=== PATIENT | female | born 1985 | race Caucasian/White ===

== ENCOUNTER 2016-12-11 13:04 | Emergency (ER) | payer SELFPAY ==
[2016-12-11] MEDS ORDERED: traMADol HCl 50 MG TAB ONE (13:27)
[2016-12-11] MEDS ORDERED: Ondansetron ODT 4 MG TAB ONE (13:27)
== END 2016-12-11 13:37 | disposition home or self-care (01) ==
LOC: MADERS 13:04
DX: R51 Headache (principal); F41.9 Anxiety disorder, unspecified; F32.9 Major depressive disorder, single episode, unspecified; Z79.899 Other long term (current) drug therapy
CPT/HCPCS: 99283; Q0162

== ENCOUNTER 2017-01-31 16:52 | Outpatient (CLI) | payer BC ==
--- NOTE | 2017-01-31 17:29 | RAD ---
THREE VIEWS OF THE RIGHT SHOULDER 01/31/17 COMPARISON: None. HISTORY: Right shoulder pain for one week. FINDINGS: The width of the right acromioclavicular joint is upper limits of normal. The coracoclavicular inter space is normal. No fracture or evidence for glenohumeral joint dislocation. IMPRESSION: The width of the AC joint is at the upper limits of normal. If the patient had recent trauma, or the patient is point tender at the region of the right AC joint, a right AC joint injury cannot be excl uded. Clinical correlation is required. POS: ISSA
== END 2017-01-31 16:53 | disposition home or self-care (01) ==
LOC: MADRAD 16:52
PROVIDERS: ATTEND Family Medicine
DX: M25.511 Pain in right shoulder (principal)

== ENCOUNTER 2019-07-09 14:50 | Emergency (ER) | payer BC ==
[2019-07-09] MEDS ORDERED: Ondansetron ODT 4 MG TAB ONE (15:19)
[2019-07-09] MEDS ORDERED: Ibuprofen 800 MG TAB ONE (15:19)
== END 2019-07-09 15:29 | disposition home or self-care (01) ==
LOC: MADERS 14:50
DX: S30.0XXA Contusion of lower back and pelvis, initial encounter (principal); S70.01XA Contusion of right hip, initial encounter; F41.9 Anxiety disorder, unspecified; F32.9 Major depressive disorder, single episode, unspecified; W01.10XA Fall on same level from slipping, tripping and stumbling with subsequent striking against unspecified object, initial encounter
CPT/HCPCS: 99283; Q0162

== ENCOUNTER 2023-04-11 05:31 | Emergency (ER) | payer BC, SELFPAY ==
[2023-04-11 05:58] LABS: Bilirubin Small (Negative); Blood, Urine Negative (Negative); Glucose, Urine (Dipstick) Negative (Negative); Ketone, Urine Negative (Negative); Leukocyte Negative (Negative); Nitrite Negative (Negative); Protein, Urine (Dipstick) 30 mg/dL (Neg-Trace); Urobilinogen 0.2 mg/dL (Less than 2); pH, Urine 5.5 (5.0-9.0)
[2023-04-11 06:06] LABS: Specific Gravity, Urine 1.031 (1.002-1.036)
[2023-04-11 06:07] LABS: Bacteria/HPF 1+ HPF (None Seen); CAUTI Indications for Culture Pelvic or flank pain; Clarity Slightly Cloudy (Clear); RBC/HPF 0-3 HPF (0-3); WBC/HPF 0-3 HPF (0-3)
[2023-04-11 06:08] LABS: Pregnancy Test - Urine (BHCG) Negative (Negative); Pregu Control Background? CLEAR/WHITE (CLR/WHITE); Pregu Control Bar Appear? YES (CONTROL BAR); Specific Gravity 1.031 (1.002-1.036); Urine Culture Reflex No No
[2023-04-11] MEDS ORDERED: Morphine 4 MG/ML VIAL ONE ×2 (06:14→08:08)
[2023-04-11] MEDS ORDERED: Lactated Ringer's 1,000 ML ONE (06:14)
[2023-04-11] MEDS ORDERED: Ketorolac Tromethamine 30 MG/ML VIAL ONE (06:14)
[2023-04-11 06:41] LABS: INR-International Normal Ratio 0.9; PTT 34.1 sec (22.9-36.1); Prothrombin Time 12.4 sec (12.0-14.7)
[2023-04-11 06:44] LABS: ALT (SGPT) 8 U/L (8-55); AST (SGOT) 15 U/L (5-34); Albumin 4.5 g/dL (3.5-5.0); Alkaline Phosphatase 101 U/L (40-110); Anion Gap 17 mmol/L (10-20); BUN (Urea Nitrogen) 14 mg/dL (7.0-18.7); Bilirubin, Total 0.5 mg/dL (0.2-1.2); Calc. Creatinine Clearance 0 mL/min (70-130); Calcium 9.9 mg/dL (7.8-10.44); Carbon Dioxide 24 mmol/L (22-29); Chloride 99 mmol/L (98-107); Estimated GFR 63; Globulin 3.9 g/dL (2.4-3.5); Glucose 113 mg/dL (70-105); Hematocrit 37.6 % (36.0-47.0); Hemoglobin 11.4 g/dL (12.0-16.0); Mean Corpuscular HGB CONC 30.4 g/dL (32.0-36.0); Mean Corpuscular Hemoglobin 23.5 pg (27.0-31.0); Mean Corpuscular Volume 77.3 fl (78.0-98.0); Mean Platelet Volume 8.5 fL (7.4-10.4); Platelet Count 461 10x3/uL (130-400); Potassium 3.3 mmol/L (3.5-5.1); Protein, Total 8.4 g/dL (6.0-8.3); RBC Distribution Width 15.2 % (11.5-14.5); Red Blood Cell (RBC) Count 4.87 mill/uL (4.20-5.40); Sodium 137 mmol/L (136-145); White Blood Cell (WBC) Count 5.9 10x3/uL (4.8-10.8)
[2023-04-11 06:50] LABS: Anisocytosis SLIGHT = 6-15 cells (100X) (0-5/hpf); Band 4 % (5-11); Lymphocytes 16 % (21-51); MDiff Complete? YES; Manual Diff?? YES; Monocytes 10 % (0-10); Neutrophil 70 % (42-75)
[2023-04-11] MEDS ORDERED: Potassium Chloride 20 MEQ TAB ONE (06:50)
[2023-04-11 06:51] LABS: Platelet Adequacy Comment Appears Adequate
[2023-04-11 07:09] LABS: Magnesium 1.9 mg/dL (1.6-2.6)
[2023-04-11] MEDS ORDERED: Iopamidol 370 76% 100 ML VIAL ONE (07:27)
[2023-04-11] MEDS ORDERED: Dicyclomine 20 MG/2 ML VIAL ONE (08:14)
[2023-04-11] MEDS ORDERED: Sodium Chloride 0.9% 100 ML ONE (08:36)
[2023-04-11] MEDS ORDERED: Piperacillin/Tazobactam 4.5 GM VIAL ONE (08:36)
== END 2023-04-11 09:11 | disposition short-term general hospital (02) ==
LOC: MADERS 05:31
DX: I88.0 Nonspecific mesenteric lymphadenitis (principal); I10 Essential (primary) hypertension
CPT/HCPCS: 74177; 80053; 81001; 81025; 83605; 83690; 83735; 85025; 85610; 85730; 87040; 96361; 96365; 96372; 96375; 96376; J1885; J2270; J2543; J3490; J7120; Q9967

== ENCOUNTER 2023-12-10 09:06 | Emergency (ER) | payer BC | END 2023-12-10 10:00 | disposition home or self-care (01) | LOC: MADERS 09:06 | DX: K04.7 Periapical abscess without sinus (principal); K08.89 Other specified disorders of teeth and supporting structures; I10 Essential (primary) hypertension | CPT/HCPCS: 99282 ==

== ENCOUNTER 2023-12-10 20:34 | Emergency (ER) | payer BC ==
[2023-12-10] MEDS ORDERED: Ondansetron ODT 4 MG TAB ONE (21:15)
[2023-12-10] MEDS ORDERED: traMADol HCl 50 MG TAB ONE (21:16)
== END 2023-12-10 21:26 | disposition home or self-care (01) ==
LOC: MADERS 20:34
DX: K04.7 Periapical abscess without sinus (principal); I10 Essential (primary) hypertension; Z79.899 Other long term (current) drug therapy; K08.89 Other specified disorders of teeth and supporting structures
CPT/HCPCS: 99282; Q0162

== ENCOUNTER 2024-07-07 03:08 | Emergency (ER) | payer BC ==
[2024-07-07 03:44] LABS: #Basophils 0.1 thou/uL (0.0-0.2); #Eosinophils 0.2 thou/uL (0.0-0.7); #Lymphocytes 2.5 thou/uL (1.20-3.40); #Monocytes 0.5 thou/uL (0.11-0.59); #Neutrophils 4.7 thou/uL (1.40-6.50); %Basophils 0.8 % (0.0-1.0); %Eosinophils 2.2 % (0.0-10.0); %Lymphocytes 31.4 % (21.0-51.0); %Monocytes 6.3 % (0.0-10.0); %Neutrophils 59.4 % (42.0-75.0); Anisocytosis SLIGHT = 6-15 cells (100X) (0-5/hpf); Elliptocytes SLIGHT = 2-5 cells (100X) (0-1/hpf); Hematocrit 26.4 % (36.0-47.0); Hemoglobin 7.6 g/dL (12.0-16.0); Hypochromia SLIGHT = 6-15 cells (100X) (0-5/hpf); MDiff Complete? YES; Mean Corpuscular Volume 62.2 fl (78.0-98.0); Mean Platelet Volume 6.8 fL (7.4-10.4); Microcytosis SLIGHT = 6-15 cells (100X) (0-5/hpf); Ovalocytes SLIGHT = 2-5 cells (100X) (0-1/hpf); Platelet Adequacy Comment Appears Increased; Platelet Count 471 10x3/uL (130-400); Polychromasia SLIGHT = 2-3 cells (100X) (0-2/hpf); RBC Distribution Width 15.9 % (11.5-14.5); Red Blood Cell (RBC) Count 4.24 mill/uL (4.20-5.40); Reflex for Review?? YES; Stomatocytes SLIGHT = 2-5 cells (100X) (0-1/hpf); White Blood Cell (WBC) Count 7.9 10x3/uL (4.8-10.8)
[2024-07-07 03:52] LABS: ALT (SGPT) 10 U/L (8-55); AST (SGOT) 18 U/L (5-34); Albumin 3.8 g/dL (3.5-5.0); Alkaline Phosphatase 91 U/L (40-110); Anion Gap 17 mmol/L (10-20); BUN (Urea Nitrogen) 6 mg/dL (7.0-18.7); Bilirubin, Total 0.3 mg/dL (0.2-1.2); Calc. Creatinine Clearance 0 mL/min (70-130); Carbon Dioxide 23 mmol/L (22-29); Chloride 103 mmol/L (98-107); Estimated GFR 82; Glucose 114 mg/dL (70-105); Potassium 3.4 mmol/L (3.5-5.1); Protein, Total 7.8 g/dL (6.0-8.3); Sodium 140 mmol/L (136-145)
[2024-07-07 03:53] LABS: Troponin I Less than 0.010 ng/mL (< 0.028)
[2024-07-07] MEDS ORDERED: Ketorolac Tromethamine 30 MG (1 mL) VIAL ONE (04:01)
[2024-07-07] MEDS ORDERED: Metoclopramide HCl 10 MG (2 mL) VIAL ONE (04:01)
== END 2024-07-07 05:00 | disposition home or self-care (01) ==
LOC: MADERS 03:08
DX: I47.10 Supraventricular tachycardia, unspecified (principal); I10 Essential (primary) hypertension; K21.9 Gastro-esophageal reflux disease without esophagitis; Z79.899 Other long term (current) drug therapy
CPT/HCPCS: 71045; 80053; 83880; 84484; 85025; 85060; 93005; 94760; 96374; 96375; J1885; J2765